=== PATIENT | male | born 1960 | race Caucasian/White ===

== ENCOUNTER → 2019-01-12 08:49 | Outpatient (CLI) | payer OTHER, SELFPAY ==
--- NOTE | 2019-01-12 | DI.RAD.S_ITS ---
PROCEDURE: XR LUMBAR SPINE 2-3V INDICATIONS: LOWER BACK AND LEFT LEG PAIN TECHNIQUE: 3 views of the lumbar spine were acquired. COMPARISON: None. FINDINGS: Bones: 5 [id number] vertebrae are present. There is normal bony alignment. No vertebral body compression fractures. No suspicious bony lesions. Note is made of quite severe degenerative disc disease at L5-S1 where essentially [id number] articulation between the adjacent endplates is present. Note is also made of moderately severe to severe facet osteoarthritis at this level with likelihood of a high-grade spinal and foraminal stenosis as result at that site. Soft tissues: Overlying bowel gas pattern is normal. No suspicious soft tissue calcifications. IMPRESSION: Only a minimal degree of degenerative disc disease and facet osteoarthritis is seen to the L5-S1 level where severe disc disease and facet osteoarthritis can be found, without associated subluxation. Dictated by: Quinn Coreas M.D. on 01/12/2019 at 9:33 Approved by: Quinn Coreas M.D. on 01/12/2019 at 9:35
== END ==
PROVIDERS: Visit Provider Chiropractor
DX: M54.5 Low back pain (principal); M79.605 Pain in left leg
CPT/HCPCS: 72100

== ENCOUNTER → 2021-01-09 09:25 | Outpatient (CLI) | payer OTHER, SELFPAY ==
--- NOTE | 2021-01-09 09:27 | DI.RAD.S_ITS ---
PROCEDURE: XR HIP W PEL IF DONE LT 2V INDICATIONS: chronic left hip pain TECHNIQUE: 2 views of the hip were acquired. COMPARISON: None. FINDINGS: Bones: No fractures or dislocations. No suspicious bony lesions. The visualized pelvic ring appears intact. There is severe narrowing of the right and left hip joint with bone on bone contact, subchondral sclerosis and cystic change. Periarticular osteophyte formation is present. Soft tissues: No suspicious soft tissue calcifications or masses. IMPRESSION: Severe bilateral hip joint degeneration, left greater than right. Dictated by: Lawrence Mullen [facility] Interpreted: Delilah Regan MD on 01/09/2021 at 9:58 Transcribed by: JESSICA on 01/09/2021 at 9:59 Approved by: Delilah Regan M.D. on 01/09/2021 at 15:02
== END ==
PROVIDERS: PCP Internal Medicine; Referring Provider Internal Medicine; Visit Provider Internal Medicine
DX: M25.552 Pain in left hip (principal); M16.0 Bilateral primary osteoarthritis of hip
CPT/HCPCS: 73502

== ENCOUNTER → 2024-01-06 12:13 | Outpatient (CLI) | payer OTHER, SELFPAY ==
--- NOTE | 2024-01-06 12:17 | EKG_ITS ---
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
[2024-01-06 14:08] LABS: Add Manual Diff / Slide Review NO; Basophils Absolute Auto 0 /uL (0-100); Basophils Percent Auto 0.4 % (0-2); Eosinophils Absolute Auto 0 /uL (0-450); Eosinophils Percent Auto 0.7 % (2-4); Hematocrit 38.9 % (41-53); Hemoglobin 13.2 g/dL (13.5-17.5); Lymphocytes Absolute Auto 1700 /uL (1100-4500); Lymphocytes Percent Auto 35.4 % (25-40); Mean Corpuscular Hemoglobin 31.7 PG (26-34); Mean Corpuscular Volume 93.1 fL (80-100); Monocytes Absolute Auto 200 /uL (0-900); Monocytes Percent Auto 5.1 % (3-14); Neutrophils Absolute Auto 2900 /uL (1500-7000); Neutrophils Percent Auto 58.4 % (50-75); Platelet Count 277 X10^3/uL (150-400); Red Blood Cell Count 4.18 X10^6/uL (4.5-5.9); Red Cell Distribution Width 12.7 % (11.6-14.8); White Blood Cell Count 4.9 X10^3/uL (4.5-11.0)
[2024-01-06 14:50] LABS: Hemoglobin A1C% w Est Avg Glu 5.5 % (4.0-6.0)
[2024-01-06 14:54] LABS: Albumin 4.3 g/dL (3.5-5.0); BUN Creatinine Ratio 15.1 (6-22); Blood Urea Nitrogen 13 mg/dL (9-20); Carbon Dioxide 26 mmol/L (22-32); Chloride 106 mmol/L (98-107); Estimated Glomerular Filt Rate > 60 mL/min (>60); Glucose 96 mg/dL (80-110); HEMOLYSIS < 15 (0-50); Potassium 4.1 mmol/L (3.4-5.1); Sodium 139 mmol/L (137-145)
[2024-01-06 15:04] LABS: Prealbumin 30.1 mg/dL (17.6-36.0)
[2024-01-06 15:19] LABS: Vitamin D 25 Hydroxy (D3) 26.3 ng/mL (30.0-100.0)
== END ==
LOC: LAB 12:15
PROVIDERS: Family Provider Internal Medicine; PCP Internal Medicine; Referring Provider Orthopaedic Surgery Adult Reconstructive Orthopaedic Surgery; Visit Provider Orthopaedic Surgery Adult Reconstructive Orthopaedic Surgery
DX: Z01.818 Encounter for other preprocedural examination (principal); R77.0 Abnormality of albumin; E55.9 Vitamin D deficiency, unspecified; R73.9 Hyperglycemia, unspecified; Z01.812 Encounter for preprocedural laboratory examination
CPT/HCPCS: 36415; 80048; 82040; 82306; 83036; 84134; 85025; 93005

== ENCOUNTER → 2024-04-30 16:20 | Outpatient (CLI) | payer BC, SELFPAY ==
[2024-04-30 18:05] LABS: Add Manual Diff / Slide Review NO; Basophils Absolute Auto 0 /uL (0-100); Basophils Percent Auto 0.5 % (0-2); Eosinophils Absolute Auto 100 /uL (0-450); Eosinophils Percent Auto 1.4 % (2-4); Hematocrit 41.8 % (41-53); Lymphocytes Absolute Auto 2400 /uL (1100-4500); Lymphocytes Percent Auto 33.3 % (25-40); Mean Corpuscular HGB Conc 33.6 % (30-36); Mean Corpuscular Hemoglobin 31.2 PG (26-34); Mean Corpuscular Volume 92.9 fL (80-100); Monocytes Absolute Auto 400 /uL (0-900); Monocytes Percent Auto 5.4 % (3-14); Neutrophils Absolute Auto 4300 /uL (1500-7000); Neutrophils Percent Auto 59.4 % (50-75); Platelet Count 297 X10^3/uL (150-400); Red Cell Distribution Width 13.3 % (11.6-14.8); White Blood Cell Count 7.2 X10^3/uL (4.5-11.0)
[2024-04-30 18:11] LABS: Albumin 4.6 g/dL (3.5-5.0); BUN Creatinine Ratio 17.5 (6-22); Blood Urea Nitrogen 17 mg/dL (9-20); Calcium 9.5 mg/dL (8.4-10.2); Carbon Dioxide 25 mmol/L (22-32); Chloride 104 mmol/L (98-107); Estimated Glomerular Filt Rate > 60 mL/min (>60); Glucose 76 mg/dL (80-110); HEMOLYSIS < 15 (0-50); Potassium 4.2 mmol/L (3.4-5.1); Sodium 139 mmol/L (137-145)
[2024-04-30 18:21] LABS: Prealbumin 32.2 mg/dL (17.6-36.0)
[2024-04-30 18:26] LABS: Hemoglobin A1C% w Est Avg Glu 5.5 % (4.0-6.0)
[2024-04-30 18:30] LABS: Vitamin D 25 Hydroxy (D3) 33.4 ng/mL (30.0-100.0)
== END ==
PROVIDERS: Family Provider Internal Medicine; PCP Internal Medicine; Referring Provider Orthopaedic Surgery Adult Reconstructive Orthopaedic Surgery; Visit Provider Orthopaedic Surgery Adult Reconstructive Orthopaedic Surgery
DX: Z01.812 Encounter for preprocedural laboratory examination (principal); R77.0 Abnormality of albumin; E55.9 Vitamin D deficiency, unspecified; R73.9 Hyperglycemia, unspecified
CPT/HCPCS: 36415; 80048; 82040; 82306; 83036; 84134; 85025

== ENCOUNTER 2024-06-26 06:08 | Day surgery (SDC) | payer BC, SELFPAY ==
[2024-06-15 08:32] VITALS: BMI 25.7
[2024-06-26] VITALS (12 sets, daily range): BP systolic 105–154; BP diastolic 62–86; PULSE 72–120; RESP 12–20; TEMP 36.3–36.7; O2SAT 92–100; BMI 25.7
--- NOTE | 2024-06-26 | DI.RAD.S_ITS ---
PROCEDURE: XR HIP W PEL IF DONE LT 2V INDICATIONS: INTRA OP ANTERIOR RIGHT HIP TECHNIQUE: 2 view(s) of the hip acquired. COMPARISON: [facility], [place], XR HIP W PEL IF DONE LT 2V, 01/09/2021, 9:25. [facility] [place], [place], XR PELVIS WITH LATERAL HIP LEFT, 12/26/2023, 16:45. FINDINGS: Intraoperative partially visualized left hip arthroplasty. Hardware is intact. There is good anatomic alignment. IMPRESSION: Intraoperative hip arthroplasty. Dictated by: Delilah Regan M.D. on 06/26/2024 at 13:02 Approved by: Delilah Regan M.D. on 06/26/2024 at 13:03
--- NOTE | 2024-06-26 06:00 | DI.RAD.S_ITS ---
PROCEDURE: XR HIP W PEL IF DONE LT 2V INDICATIONS: ZAHRA TECHNIQUE: 2 view(s) of the hip acquired. COMPARISON: [facility], [place], XR HIP W PEL IF DONE LT 2V, 06/26/2024, 9:32. [facility], [place], XR HIP W PEL IF DONE LT 2V, 01/09/2021, 9:25. FINDINGS: Bones: Patient is status post left hip arthroplasty, with hardware components in expected positions. The hip joint appears congruent. The visualized bony structures appear intact. Soft tissues: Overlying postoperative changes are noted. No suspicious soft tissue densities. IMPRESSION: Expected post-operative appearance of a hip arthroplasty. Dictated by: Federico De La Cruz M.D. on 06/26/2024 at 12:18 Approved by: Federico De La Cruz M.D. on 06/26/2024 at 12:18
[2024-06-26] MEDS: LACTATED RINGERS 1,000 ML 42 ML IV ×2 (07:12→09:50)
[2024-06-26] MEDS: MELOXICAM 7.5 MG TABLET PO (07:19)
[2024-06-26] MEDS: ACETAMINOPHEN 325 MG TABLET 975 MG PO (07:19)
--- NOTE | 2024-06-26 07:48 | PM.PREOP ---
Pre-operative Note Interval Note History & Physical reviewed/Exam performed by Physician: Yes Changes to H&P: No
[2024-06-26] MEDS: CEFAZOLIN 2 GM/100 ML PREMIX 100 ML IV ×2 (07:59→16:44)
[2024-06-26] MEDS: TRANEXAMIC ACID 1,000 MG VIAL 1000 MG INJ ×2 (07:59→09:40)
--- NOTE | 2024-06-26 08:33 | SUR.OPER ---
Supine on padded [place] table with bilateral legs secured in padded positioning boots and suspended in positioning spars, operative leg in traction per surgeon. Head on one pillow. Arms secured on padded armboards <90 degrees abduction. Padded perineal post in place per surgeon.
[2024-06-26] MEDS: ROPIVACAINE/EPI/CLONIDINE/KET 50 ML SYRINGE INJ (09:00)
[2024-06-26] MEDS: ALBUMIN HUMAN 12.5 GM/250 ML VIAL IV (09:39)
--- NOTE | 2024-06-26 09:57 | P.OP_ITS ---
Operative Date/Time/Diagnoses Date of procedure: 06/26/24 Pre-op diagnosis: Left hip osteoarthritis Post-op diagnosis: same Procedure & Clinicians Procedure: Left total hip arthroplasty Same procedure as scheduled: Yes Surgeon: Luis Burton Cover Mat Machine Operator: Peyton Irizarry Anesthesia Type: General and Local Operative Notes Estimated Blood Loss (mL): 450 Procedure in detail: Left Uncemented Direct Anterior Depuy Total Hip Arthroplasty: Implants: * [place] Gription size 62 cup?with +4 liner * Actis femoral stem size 11 high offset? * 36 mm +1.5 ceramic femoral head? Procedure Summary: This 64-year-old male patient had severe osteoarthritis with abundant osteophyte formation around both the acetabular and femoral portions of his hip articulation. Extraction of his femoral head after the neck cut required extensive debridement of these peripheral neck osteophytes. Two screws were placed to provide reinforcement to the cup although it had a robust pinch fit because significant work was required to remove osteophytes from the periphery of the acetabulum as well, particularly inferior medially. He had implants placed which were higher than the templated sizes on both the acetabular and femoral sides. He had been 1.3 cm short preoperatively due to the severity of his arthritis and because of the increased length provided by the construct utilized today reduction was quite challenging. The hip was predictably tight and a conjoined tendon release was required to access the femur for broaching. He was able to externally rotate to 100? at the conclusion of the procedure and I was unable to manually dislocate his hip with maximum external rotation or a 45 degree drop test. Procedure in Detail: This patient was seen preoperatively and evaluated for hip pain which was refractory to numerous nonoperative treatment modalities. Their hip pain correlated with radiographic changes demonstrating significant degeneration in the hip joint. The risks and benefits of continued nonoperative management versus operative management were discussed at length and all of the patient?s questions were answered. Additional educational materials providing further details beyond our discussion in clinic were provided via a publicly available patient education video which included the incidence of medical complications associated with total hip arthroplasty, reasons for revision following total hip arthroplasty, and patient satisfaction rates following total hip arthroplasty. That video can be accessed at [email or web address] . With this understanding of the risks inherent to the procedure, the patient elected to move forward with operative management. Following preoperative optimization, the patient was scheduled for surgery. The patient was met in the preoperative holding area the day of the procedure and all questions were answered. The patient?s nares were swabbed with betadine in order to decolonize them from MRSA. Informed consent was signed and the left limb was marked with indelible ink.? The patient was brought back to the operating room where anesthesia was induced. The patient was transferred to the [place] table and all bony prominences were padded. The operative site was prepped and draped in the usual sterile fashion. Prior to incision, tranexamic acid and cefazolin were administered. Operative templating images were displayed demonstrating the anticipated implant sizes and correct operative extremity. A timeout procedure was performed verifying the patient?s identity, medical comorbidities, allergies, relevant medications, anesthesia type and the surgical plan. All present were in agreement. The assistance of a physician pharmacist assistant was required for positioning, room setup, soft tissue retraction and wound closure. Without this assistance, the procedure would have been significantly more challenging and time consuming.?? A direct anterior approach to the hip was utilized. This was performed with a longitudinal incision through a Heuter interval. The incision was planned 2 cm distal and 2 cm lateral to the ASIS extending towards the lateral patella, in line with the muscle body of the TFL. Following incision, the subcutaneous tissue was dissected while taking care to avoid injury to the lateral femoral cutaneous nerve. The fascia overlying the TFL was identified by dissecting off the overlying fat and identifying perforating vessels to the TFL. The TFL fascia was incised and dissected away from the medial border of the TFL. A cobra retractor was placed over the superior femoral neck between the abductors and the hip capsule and used to reflect the TFL laterally. A [place] self-retainer was then placed in the distal aspect of the wound between the TFL and the rectus femoris. This was tensioned to open up the direct anterior interval and the lateral circumflex vessels were identified and coagulated using electrocautery. The floor of the TFL fascia was incised, exposing the pericapsular fat overlying the hip capsule. A second cobra retractor was placed on the inferior femoral neck. A double-bent soft tissue retractor was placed on the anterior wall of the acetabulum and used to tension the reflected head of rectus femoris, which was then released in order to limit soft tissue tension. A capsulotomy was made in the midline of the anterior hip capsule in line with the femoral neck ending at the vastus tubercle. The double-bent retractor was removed in order to limit the amount of time that a soft tissue retractor remained on the anterior wall and protect the femoral nerve. Tag stitches were placed in the superior and inferior leaflets of the hip capsule. An [place]annie soft tissue retractor was introduced over the tag stitches and tensioned in the interval between the rectus femoris and the TFL in order to retract and protect those muscles. The cobra retractors were replaced intracapsularly, with one over the superior neck in the pocket created by the base of the greater trochanter and the other on the femoral head. The capsulotomy was extended laterally to the base of the greater trochanter and medially to the lesser trochanter. This required externally rotating the hip. Once the lesser trochanter had been identified, a neck cut was planned according to measurements from preoperative templating. A ruler was cut at the length measured between the superior aspect of the lesser trochanter and the collar of the prosthesis. This line was extended towards the inferior aspect of the lateral cobra retractor to plan a cut which would leave minimal residual femoral neck laterally. The neck was cut at 60 degrees of external rotation along that line. A second cut was performed to remove a large napkin ring and facilitate head extraction. The napkin ring cut and femoral head were removed.?? A broad anterior wall retractor was placed between the labrum and the anterior capsule so that the anterior capsule would prevent capturing and pinching the femoral nerve anteriorly. An additional retractor was placed on the posterior wall. External rotation and traction were applied through the [place] table so that the cut surface of the femoral neck would not restrict access to the acetabulum. The labrum was excised sharply and the pulvinar was excised with electrocautery to limit bleeding from branches of the obturator artery. Acetabular reamers were selected based on preoperative templating and measurements of the excised femoral head. These were introduced into the acetabulum. Fluoroscopy was u tilized to replicate a standing AP pelvis radiograph by centering over the pelvis, rotating until there was appropriate symmetry between the obturator foramen, and introducing caudal tilt to match the position of the pubic symphysis relative to the sacrococcygeal junction according to the patient?s anatomy. Fluoroscopy was utilized to ensure appropriate reaming depth. Once satisfied with the reaming depth corresponding to the preoperative template and the pinch fit between the columns, an appropriate sized acetabular cup was selected which would provide 1 mm of press-fit. This cup was introduced and manipulated until appropriate abduction and anteversion angles were obtained with careful attention to appropriate abduction and anteversion angles as evaluated by the position of the cup relative to the anterior and posterior mercado of the acetabulum and the AP fluoroscopy which recreated the patient?s standing radiograph. The cup was impacted into place. Two screws were placed to provide additional fixation. Peripheral osteophytes were removed. The acetabular liner was then placed with care to ensure locking of the locking mechanism.? Attention was then turned to the femur. All retractors were removed, traction was released, a retractor was placed in the interval between the hip capsule and the gluteus minimus, and the hip was externally rotated to 90 degrees. Traction was applied through the [place] table to tension the lateral capsule and this was released using electrocautery. Traction was released and a [place] hook was placed posteriorly around the proximal femur at the level of the vastus ridge. The table height was lowered in order to restrict the tension on the anterior structures during hip hyperextension to limit the risk of femoral nerve palsy. With traction off and the hip at 90 degrees of external rotation, the hip was hyperextended and adducted while manually elevating the femur away from the acetabulum with the [place] hook to ensure it would not be caught behind the greater trochanter. An asymmetric retractor was placed over the calcar and a broad double-pronged retractor was placed over the greater trochanter. The tag stitch capturing the lateral leaflet of the capsule was moved to the medial side, leaving the conjoined and piriformis tendons isolated in the face of the greater trochanter. The hip was externally rotated and elevated. A release of the conjoined tendon was necessary in order to obtain adequate exposure for broaching. The canal was opened with an opening broach and a rasp was used to remove cancellous bone. A rongeur was used to remove the residual lateral bone at the base of the greater trochanter to avoid placing the stem in varus. The femur was then broached to the appropriate sized stem yielding good rotational fit and fill of the canal as well as appropriate version of the stem trial. Neck and head trials were placed, all retractors were removed and the hip was returned to neutral abduction and extension. I then reduced the hip. Initial trialing was performed with a size 11 broach, a high offset neck and a +1.5 head. I initially manually externally rotated the hip and found no instability with maximum external rotation. I then locked the hip in 45 degrees of external rotation and dropped it to the floor with traction off which demonstrated no instability. An AP pelvis fluoroscopic image matching the preoperative standing radiograph with both lesser trochanters visible and both hips in 40 degrees of external rotation demonstrated appropriate leg length and offset. AP and lateral hip fluoroscopic images were obtained to evaluate the broach size which demonstrated good canal fill. The hip was dislocated and I returned to the broaching position. Based on my evaluation during initial trialing I planned to place these definitive implants. The definitive stem was placed and the trunnion was cleaned and dried. I placed a ceramic head onto the trunnion and impacted it into place on the [place] taper.?? All retractors were removed and the hip was reduced. A dilute mixture of betadine and peroxide was used to bathe the soft tissues during final fluoroscopic assessment. Appropriate component positioning was confirmed on an AP pelvis radiograph with the operative and nonoperative legs in 40 degrees of external rotation, evaluating leg length and offset. Appropriate stem fill was evaluated on AP and lateral hip radiographs. No fractures were identified on these radiographs. There was no hip instability with maximum (100?) external rotation as well as a 45 degree drop test. The hip was copiously irrigated with pulse lavage. The capsule was closed with absorbable interrupted suture. The TFL fascia was closed with barbed suture while carefully protecting the lateral femoral cutaneous nerve from entrapment. A mixture of Ropivacaine, Epinephrine, Clonidine and Toradol was infiltrated throughout the soft tissues. The skin was closed with 2-0 and 3-0 sutures. Surgical glue was applied and a soft dressing was placed.??The sponge, instrument and needle counts were reported as being correct at the end of the case.??No obvious complications occurred. The patient was transferred from the [place] table back to a stretcher. The patient emerged from anesthesia without difficulty and was taken to the PACU in a stable condition.? Plan for aftercare: * Anterior hip precautions * Weightbearing as tolerated * Aspirin 81 twice per day for DVT prophylaxis * Anticipate discharge home either today or tomorrow. Patient will be transferred to the floor postoperatively * Change into normal clothes upon arrival on the hospital floor * Mobilize in the halls as much as is logistically possible. If physical therapy is unavailable for mobilization, then patient should mobilize with nursing staff * Multimodal pain regimen with no IV opioids ordered * Apply ice machine to operative hip. Ensure that sufficient ice is in the chamber for the pad to remain cold * Follow up at [facility] in 2 weeks * Detailed postoperative instructions available at [email or web address]
[2024-06-26] MEDS: OXYCODONE IR 5 MG TABLET PO (10:40)
[2024-06-26] MEDS: ACETAMINOPHEN 325 MG TABLET 650 MG PO ×3 (11:21→22:44)
[2024-06-26] MEDS: LACTATED RINGERS 1,000 ML 100 ML IV ×2 (11:21→20:40)
[2024-06-26 11:34] LABS: Hematocrit 34.9 % (41-53); Hemoglobin 11.9 g/dL (13.5-17.5)
--- NOTE | 2024-06-26 15:50 | PT.IIE ---
Current Diagnoses Unilateral primary osteoarthritis, left hip (06/26/24) Surgery Performed Operation Date: 06/26/24 07:45 Actual Procedures p Total Hip Arthroplasty/Anterior Approach(Left) - Luis Burton MD Surgical History (Last Reviewed 06/26/24 @ 07:23 by Barbra Landry, LOLA) Anesthesia H/O hemorrhoidectomy (~2001) Medical History (Last Updated 06/15/24 @ 09:07 by Jennyfer Smallwood RN) Anxiety about health Chronic back pain Gout Hemorrhoid Osteoarthritis of left hip Osteoarthritis of right hip Physical Therapy Inpatient Evaluation/Re-Eval M1 PT/OT-IP Prior Functional Status Start: 06/26/24 16:57 Freq: NEEDED Status: Active Protocol: Document 06/26/24 15:50 AB (Rec: 06/26/24 17:23 AB [id number]) Medical Review Prior Functional Status Medical History Reviewed Yes Communication able to make needs known Mobility and Gait pt stated that he was independent with all mobilities and ambulation without AD Social History Household Members children Living Arrangements House Number of Floors (Floors) One Floor Number of Stairs To Enter/Railing? 3 steps B rails to enter Home Environment Standard Height Toilet,Walk in Shower Home Equipment Front Wheel Walker,Straight Cane,Raised Toilet Seat w/ Armrests,Shower Seat without Backrest,Grab Bars Near Toilet Additional Social History Comment pt lives with his son who can assist him but works 4am to 10 am. pt will have his neighbor and nephew assist him if needed when son is away M2 PT-IP Current Condition Start: 06/26/24 16:57 Freq: NEEDED Status: Active Protocol: Document 06/26/24 15:50 AB (Rec: 06/26/24 17:23 AB [id number]) Physical Therapy Current Condition Current Condition Evaluation Date 06/26/24 Treatment Diagnosis s/p L ZAHRA anterior; difficulty in walking Onset Date 06/26/24 M3 PT-IP Subjective Start: 06/26/24 16:57 Freq: NEEDED Status: Active Protocol: Document 06/26/24 15:50 AB (Rec: 06/26/24 17:23 AB [id number]) Subjective Physical Therapy Visit Type Type Initial Evaluation Visit Start Time 15:50 Visit Stop Time 16:35 Number of GERMAN PROFESSOR Visits 0 Physical Therapy Visit Comments Patient Comments agreeable to do PT Therapy Pain Assessment Pain When Pain Assessed At Rest Pain Present Pain Present Pain Reported Location Left Hip Intensity 1 Scale Used Numeric (0 - 10) Pain Management Techniques Apply Cold,Distraction, Modification of Treatment,Re- positioning,Timing of Activity with Medications M4 PT-IP Mobility and Gait Start: 06/26/24 16:57 Freq: NEEDED Status: Active Protocol: Document 06/26/24 15:50 AB (Rec: 06/26/24 17:23 AB [id number]) PT-Bed Mobility Assessment Supine to Sit Supine to Sit Minimal Assistance,Bedrails Sit to Supine Sit to Supine Moderate Assistance,Bedrails PT-Transfer Assessment Sit to and From Stand Sit to and from Stand Contact Guard Assistance,1 Person Assistance,Use of Upper Extremities Equipment Transfer Assistive Device Gait Belt,Front Wheeled Walker Orthotic/Prosthetic Devices or Brace: No Transfers Transfer Destination Toilet Transfer Technique ambulated Transfer Ability Level of Assist Contact Guard Assistance,1 Person Assistance,Use of Upper Extremities Comments Mobility Comments pt in bed and agreeable to do PT. obtained PLOF and home set up. educated pt regarding L hip anterior precautions. post-op folder provided. BP in supine: 117/69. pt completed supine to sit min A and cues. pt used bed rail to assist. pt sat on EOB. BP checked: 112/73 pt sat for a few more seconds and BP rechecked: 134/76. pt requested to use the toilet. pt completed sit to stand CGA and ambulated to the toilet using FWW CGA. no c/o dizziness. pt was able to use the toilet standing using FWW for support. pt ambulated towards the bed using FWW CGA and c/o having cold sweats and lightheaded. pt sat on EOB. attempted to check BP in sitting but unable. assisted pt to lie down in bed mod A for bed mobility. BP checked: 88/47. nurse in room BP after repositioning pt in bed: 102/57. call light and table placed within reach. Gait Assessment Gait Gait Assistance Required: Contact Guard Assist Distance (Feet) 12 Able to Maintain Weight Bearing Status Yes During Gait Assistive Devices Assistive Device Gait Belt,Front Wheeled Walker Orthotic/Prosthetic Devices or Brace: No Gait Deviations General Gait Pattern Antalgic Factors Limiting Gait Function Factors Limiting Gait Function Decreased Activity Tolerance, Decreased Strength,Difficulty Following Directions,Limited Range of Motion,Pain,Poor Balance,Poor Safety Awareness PT-Balance Assessment Sitting Balance and Reactions Static Sitting Balance Ability Good Dynamic Sitting Balance Ability Good Standing Balance and Reactions Static Standing Balance Ability Fair Dynamic Standing Balance Ability Fair Device Used FWW M5 PT-IP Objective Assessments Start: 06/26/24 16:57 Freq: NEEDED Status: Active Protocol: Document 06/26/24 15:50 AB (Rec: 06/26/24 17:23 AB [id number]) Orientation Orientation/Cognition Level of Alertness Alert Orientation Name,Place,Situation Language Function Ability Hard of Hearing Safety Awareness Decreased Safety Awareness Memory Description No Deficits Noted Gross Range of Motion Lower Extremity ROM Assessment Within Functional Limits Strength Lower Extremity Strength Assessment Left Impaired Hip 3-/5 Knee 4-/5 Sensation Assessment Sensation Gross Sensation WNL Muscle Tone Muscle Tone WNL Yes M6 PT-IP Treatment Start: 06/26/24 16:57 Freq: NEEDED Status: Active Protocol: Document 06/26/24 15:50 AB (Rec: 06/26/24 17:23 AB [id number]) Physical Therapy Treatment Education Education Provided Precautions,Weight Bearing Status,Post-Op Packet,Safety M7 PT-IP Assessment and Plan Start: 06/26/24 16:57 Freq: NEEDED Status: Active Protocol: Document 06/26/24 15:50 AB (Rec: 06/26/24 17:23 AB [id number]) PT Summary Assessment and Plan Potential Rehabilitation Potential Fair Status of Condition at Evaluation Unstable Summary Impairments Pain,ROM,Strength,Balance, Coordination,Sensation,Tone, Cognition,Bed Mobility, Transfers,Gait,Activity Tolerance Assessment Summary pt is a 64 y/o M s/p L ZAHRA anterior approach POD 0. pt with L hip anterior precautions and is WBAT. pt requiring min to mod A for bed mobility, CGA for transfers and ambulation using FWW. pt has orthostatic hypotension limiting activity. will continue to assess progress. when appropriate, will conduct caregiver training and stair climbing training. Goals Bed Mobility Goal Independent Transfer Goal Independent,Front Wheeled Walker Gait Goal Independent,Front Wheel Walker Gait Distance 200 Other Goals up/down 3 steps B rails SBA Days to Meet Goals 5 Frequency of Treatment Frequency Of Treatment Twice a Day Treatment Plan Physical Therapy Treatment Plan Bed Mobility Training,Transfer Training,Gait Training, Therapeutic Exercise,Balance Retraining,Post Op Education, Discharge Planning,Hot or Cold Pack,Neuromuscular Re-ed, Coordination Retraining,Manual Therapy Precautions Anterior Hip Precautions No Hip Extension,No Hip External Rotation Weight Bearing Status Weight Bearing Status Weight Bear as Tolerated Allowed Weight Bearing Amount (enter % LLE WBAT or #) (%) Recommendations To Nursing Amount of Assist Needed 1 Person Assist Discharge Recommendations PT Discharge Recommendations Home with Assistance, Outpatient PT Transportation Needs at Discharge Private Vehicle
[2024-06-26] MEDS: IBUPROFEN 600 MG TABLET PO (20:38)
[2024-06-26] MEDS: ASPIRIN EC 81 MG TABLET PO (20:38)
[2024-06-26] MEDS: DOCUSATE 100 MG CAPSULE PO (20:38)
[2024-06-27] MEDS: CEFAZOLIN 2 GM/100 ML PREMIX 100 ML IV (00:08)
[2024-06-27] MEDS: ACETAMINOPHEN 325 MG TABLET 650 MG PO ×2 (04:59→12:10)
[2024-06-27 05:21] LABS: Hematocrit 29.7 % (41-53); Hemoglobin 10.3 g/dL (13.5-17.5)
--- NOTE | 2024-06-27 07:54 | P.DS_ITS ---
History of Present Illness History of Present Illness Date Patient Seen: 06/27/24 Time Patient Seen: 07:54 Chief complaint: Left ZAHRA Anterior*OPB* Narrative: Operative Date/Time/Diagnoses Date of procedure: 06/26/24 Pre-op diagnosis: Left hip osteoarthritis Post-op diagnosis: same Procedure & Clinicians Procedure: Left total hip arthroplasty Same procedure as scheduled: Yes Surgeon: Luis Burton Instructional Systems Designer: Peyton Irizarry Anesthesia Type: General and Local Operative Notes Estimated Blood Loss (mL): 450 Procedure in detail: Left Uncemented Direct Anterior Depuy Total Hip Arthroplasty: Implants: * Herculaneum Gription size 62 cup?with +4 liner * Actis femoral stem size 11 high offset? * 36 mm +1.5 ceramic femoral head? Discharge Providers Provider Discharge Date: 06/27/24 Primary care physician: Benoit Hall MD Consults: 06/26/24 06:00 Consult to Anesthesiology Routine Comment: Consulting Provider: Anesthesiologist Reason for consultation: Regional block for post operative pain control Has provider been notified: No 06/26/24 10:54 Consult to Discharge Planning Routine Comment: Consult to Physical Therapy Evaluate & Treat Comment: Physician Instructions: post op ZAHRA protocol Discharge provider: Peyton Irizarry PA-C Summary Hospital Course Discharge Diagnosis: Left hip osteoarthritis, s/p left total hip arthroplasty Hospital Course: Mr Cuevas's hospital course was unremarkable. On the morning of POD# 1, he was feeling well and wanted to go home. He was eating and voiding without difficulty and his pain was well-controlled with oral medication. He had worked once with PT and still needed to do caregiver and stair training. Exam Vital Signs (past 8 hours): Oxygen Delivery Method Room Air Oxygen Flow Rate 0 Narrative Exam Narrative: 5/5 strength in hip flexors, quadriceps, hamstrings, DF, PF, EHL on left. Sensation to light touch intact throughout LLE, calf soft and compressible. Aquacel dressing CDI. Objective Labs 06/27/24 05:07 Labs: Laboratory Results - last 24 hr 06/26/24 06/27/24 11:29 05:07 Hgb 11.9 L 10.3 L Hct 34.9 L 29.7 L PFSH Medical History (Updated 06/15/24 @ 09:07 by Jennyfer Smallwood RN) Anxiety about health Chronic back pain Osteoarthritis of right hip Osteoarthritis of left hip Hemorrhoid Gout Surgical History (Updated 06/27/24 @ 08:00 by Peyton Irizarry PA-C) Anesthesia H/O hemorrhoidectomy (~2001) Family History (Updated 01/10/21 @ 20:30 by Sanjuana Norman) Father Lung cancer Mother Cancer Social History household members: children Smoking Status: Never smoker alcohol intake: former Discharge Assessment & Plan Assessment and Plan Assessment: Left hip osteoarthritis, s/p left total hip arthroplasty Plan of Treatment: Discharge home after PT. It appears that rxs for ondansetron and oxycodone were sent from our office on 06/19, but pt never picked them up; will resend. F/u in 2 weeks as scheduled. ASA 81 mg BID x 4 weeks for VTE prophylaxis. Discharge Plan Discharge Plan Patient Disposition: Home Discharge orders & Medications Discharge Orders: Discharge (Order); Ordered 06/27/24 Ordered By: Peyton Irizarry Prescriptions: New oxycodone 5 mg tablet 5 mg PO Q4-6H PRN (Reason: pain (scale score 4-6)) Qty: 20 0RF ondansetron 4 mg tablet,disintegrating 4 mg PO Q6H PRN (Reason: nausea and vomiting) Qty: 20 0RF Continued acetaminophen 500 mg Tablet 500 mg PO DAILY Follow up/Referrals: Benoit Hall MD [Primary Care Provider] - Luis Burton MD [Physician] - 07/08/24 2:00 pm ([facility] in [place]) Diet/Activity/Treatments Diet: Diet as Tolerated Activity: Weightbearing as tolerated. Anterior hip precautions. Cold/Heat Therapy: Ice to hip as needed for pain. Skin/Wound/Dressing Care Report to your healthcare provider any signs of infection, such as:: chills, fever, night sweats, unusual drainage and unusual redness Dressing: May shower. Leave Aquacel dressing in place until follow up in office. No bathing or otherwise soaking incision. Call the office if the dressing becomes saturated inside. Visit Report/Discharge Packet Instructions: DI for Hip Replacement, DI for Prescription Opioid Use Stand Alone Forms: Patient Portal/API, Surgery Discharge Discharge Data Primary Care Provider: Benoit Hall Attending Provider: Luis Burton
[2024-06-27 08:00] VITALS: BP 105/68; PULSE 77; RESP 16; TEMP 36.7; O2SAT 99
--- NOTE | 2024-06-27 08:45 | PT.IPTN ---
Current Diagnoses Unilateral primary osteoarthritis, left hip (06/26/24) Presence of unspecified artificial hip joint (06/26/24) Surgery Performed Operation Date: 06/26/24 07:45 Actual Procedures p Total Hip Arthroplasty/Anterior Approach(Left) - Luis Burton MD Physical Therapy Treatment Note M2 PT-IP Current Condition Start: 06/26/24 16:57 Freq: NEEDED Status: Active Protocol: Document 06/26/24 15:50 AB (Rec: 06/26/24 17:23 AB [id number]) Physical Therapy Current Condition Current Condition Evaluation Date 06/26/24 Treatment Diagnosis s/p L ZAHRA anterior; difficulty in walking Onset Date 06/26/24 M3 PT-IP Subjective Start: 06/26/24 16:57 Freq: NEEDED Status: Active Protocol: Document 06/27/24 08:45 AB (Rec: 06/27/24 12:09 AB [id number]) Subjective Physical Therapy Visit Type Type Treatment Note Visit Start Time 08:45 Visit Stop Time 09:25 Number of HOME RESTORATION SERVICE SUPERVISOR Visits 0 Physical Therapy Visit Comments Patient Comments agreeable to do PT Therapy Pain Assessment Pain When Pain Assessed At Rest Pain Present Pain Present Pain Reported Location Left Hip Intensity 2 Scale Used Numeric (0 - 10) Pain Behaviors Guarding Pain Management Techniques Apply Cold,Distraction, Modification of Treatment,Re- positioning,Timing of Activity with Medications M4 PT-IP Mobility and Gait Start: 06/26/24 16:57 Freq: NEEDED Status: Active Protocol: Document 06/27/24 08:45 AB (Rec: 06/27/24 12:09 AB [id number]) PT-Bed Mobility Assessment Supine to Sit Supine to Sit Standby Assistance PT-Transfer Assessment Sit to and From Stand Sit to and from Stand Standby Assistance,1 Person Assistance,Use of Upper Extremities Equipment Transfer Assistive Device Gait Belt,Front Wheeled Walker Orthotic/Prosthetic Devices or Brace: No Transfers Transfer Destination Bed Transfer Technique ambulated Transfer Ability Level of Assist Standby Assistance,Use of Upper Extremities Comments Mobility Comments pt supine in bed and agreeable to do PT. BP: 99/60. reviewed hip precautions and pt able to recall. completed supine to sit SBA. required increase time to complete. pt with increase retrolean and cued to correct. per pt, he has chronic back issues and had to sit up right. educated pt importance of posture and alignment. pt understood. BP in sitting 107/65. pt without c/o dizziness/lightheadedness . BP checked after ~ 2 min: 116/70. pt completed sit to stand SBA and ambulated in room using FWW SBA ~ 30 ft. pt sat on chair. BP checked: 117/64. pt agreed to do stairs . sit to stand from chair SBA and ambulated in the hallway using FWW ~ 100 ft SBA. stair climbing training: educated pt on how to do stairs. pt completed up/down steps using B rails SBA. assisted pt back to his room. ambulated from w/c to chair using FWW SBA. positioned pt on the chair. ice pack provided. call light and table placed within reach. pt without further concerns. BP at end of session: 114/54. Gait Assessment Gait Gait Assistance Required: Standby Assistance Distance (Feet) 100 Able to Maintain Weight Bearing Status Yes During Gait Assistive Devices Assistive Device Gait Belt,Front Wheeled Walker Orthotic/Prosthetic Devices or Brace: No Gait Deviations General Gait Pattern Antalgic Factors Limiting Gait Function Factors Limiting Gait Function Decreased Activity Tolerance, Decreased Strength,Limited Range of Motion,Pain,Poor Balance,Poor Safety Awareness Stair Climbing Assessment Evaluation Level of Assist On Stairs Standby Assistance Devices Stair Climbing Assistive Devices Left Railing,Right Railing Technique/Endurance Stair Climbing Direction Ascend and Descend Stair Climbing Technique Step to Step Number of Steps Climbed 3 Stair Climbing Set # Repetitions (reps) 1 M5 PT-IP Objective Assessments Start: 06/26/24 16:57 Freq: NEEDED Status: Active Protocol: Document 06/26/24 15:50 AB (Rec: 06/26/24 17:23 AB [id number]) Orientation Orientation/Cognition Level of Alertness Alert Orientation Name,Place,Situation Language Function Ability Hard of Hearing Safety Awareness Decreased Safety Awareness Memory Description No Deficits Noted Gross Range of Motion Lower Extremity ROM Assessment Within Functional Limits Strength Lower Extremity Strength Assessment Left Impaired Hip 3-/5 Knee 4-/5 Sensation Assessment Sensation Gross Sensation WNL Muscle Tone Muscle Tone WNL Yes M6 PT-IP Treatment Start: 06/26/24 16:57 Freq: NEEDED Status: Active Protocol: Document 06/27/24 08:45 AB (Rec: 06/27/24 12:09 AB [id number]) Physical Therapy Treatment Education Education Provided Precautions,Safety M7 PT-IP Assessment and Plan Start: 06/26/24 16:57 Freq: NEEDED Status: Active Protocol: Document 06/27/24 08:45 AB (Rec: 06/27/24 12:09 AB [id number]) PT Summary Assessment and Plan Potential Rehabilitation Potential Good Summary Impairments Pain,ROM,Strength,Balance,Bed Mobility,Transfers,Gait, Activity Tolerance Progress Towards Goals Progressing Toward Goals Assessment Summary pt progressing well with mobility and able to ambulate using fWW ~ 100 ft SBA. pt plans to go home and will have his son to assist him if needed. pt may go home when medically stable. Goals Bed Mobility Goal Independent Transfer Goal Independent,Front Wheeled Walker Gait Goal Independent,Front Wheel Walker Gait Distance 200 Other Goals up/down 3 steps B rails SBA Days to Meet Goals 5 Frequency of Treatment Frequency Of Treatment Twice a Day Treatment Plan Physical Therapy Treatment Plan Bed Mobility Training,Transfer Training,Gait Training, Therapeutic Exercise,Balance Retraining,Post Op Education, Discharge Planning,Hot or Cold Pack,Neuromuscular Re-ed, Coordination Retraining,Manual Therapy Precautions Anterior Hip Precautions No Hip Extension,No Hip External Rotation Weight Bearing Status Weight Bearing Status Weight Bear as Tolerated Allowed Weight Bearing Amount (enter % LLE WBAT or #) (%) Recommendations To Nursing Amount of Assist Needed 1 Person Assist Discharge Recommendations PT Discharge Recommendations Home with Assistance, Outpatient PT Transportation Needs at Discharge Private Vehicle
[2024-06-27] MEDS: ASPIRIN EC 81 MG TABLET PO (09:09)
[2024-06-27] MEDS: DOCUSATE 100 MG CAPSULE PO (09:09)
--- NOTE | 2024-06-27 12:18 | PC.NURSE ---
Addendum entered by Flo Byrd R.N. 06/27/24 18:08: discharge instructions given to Pt and his sister in law. Pt escorted to private car. jeancarlos activity well. IV d/c'd intact per protocol prior to escort down to car. Original Note: Pt alert and oriented, offers no overt complaint, doing well with post op recovery, asking appropriate questions. Follows commands well. Readying for d/c.
--- NOTE | 2024-06-27 15:39 | CM.DANOTE ---
Patient is a 64 yo male who was [place] [facility] [place] for LTHA. Pt has [employer] for insurance and his PCP is Dr. Benoit Hall. EMR was reviewed. Per Ortho PA, pt tolerated procedure well and pain seems controlled, voiding independently, and tolerating diet and medically stable to discharge home today and no identified barriers to discharge. Per PT, pt able to ambulate with FWW CGA/SBA and completed stairs and recommending home with assist and outpt PT. Pt lives in [place] with his son and is active and independent at baseline and son can provide assist most of the time but works [id number] so pt's nephew can assist as needed during those times. Plan: Patient to d/c home today via family POV and outpt f/u and no further SW needs at this time. STELLA Higuera Discharge Planning/Care Management Pre-Anesthesia Assessment Start: 06/15/24 08:32 Freq: Status: Complete Protocol: Document 06/15/24 08:32 CAB (Rec: 06/15/24 09:21 CAB [id number]) Pre-Anesthesia Assessment PAC Comment Phone assess 06/15/24 Patient Information Reviewed Via Phone Assessment Assessment Completed With Patient Diagnostic Results BMP/CMP,CBC,EKG Comment Labs/EKG @ [facility] Primary Care Provider Benoit Hall Comment Clearance form 12/26/23 scanned and in surgery folder Seen Specialist in Last 12 Months Yes Specialist Seen Orthopedist Primary Language Lao Front End Ui Developer Required No Height 187.96 cm Weight 90.718 kg Body Mass Index (BMI) 25.7 Hearing Ability Normal Visual Impairment No Limitations Visual Assist None Dentition Type Teeth, Natural Present,Teeth, Broken Barriers to Learning None Hx Anesthesia Reactions No: Pt very anxious about anesthesia Hx Family Anesthesia Reaction No Hx Malignant Hyperthermia No Hx Blood Transfusions No Anesthesia Review Requested No Senior Assistant Manager No alcohol intake former Alcohol Intake Frequency Other: Stopped 2014 Smoking Status Never smoker Substance Use Type [#R] does not use Pain Present Pain Reported Musculoskeletal Symptoms Abnormal Gait,Back Pain, Difficulty Walking,Joint Pain History of Falling (Recent or History of No ) Patient is completely paralyzed or No completely immobile Mental Status Oriented to own ability Is patient on oxygen? No Does patient have MINOR/SOB No Hx Sleep Apnea No Currently Taking a Beta Chuck No Can You Climb a Flight of Stairs Without Yes SOB Hx Chest Pain No Hx SOB No Hx Syncope or Dizziness No Anti-Coagulant Therapy No Has a Director Of Strategic Communications No Cardiac Testing No Hx Pacemaker/ICD No Pacemaker Rep Required? No Cardiac Clearance Received No Diet Type At Home Regular Dysphagia No Gastrointestinal Symptoms None Chronic UTI No Urinary Catheter Present No Hx Urinary Self Catheterization No Diabetes No HgbA1C 5.5 Date 04/30/24 Comment A1c 5.5% 04/30/24 Hx Drug Resistant Organism No Presence of External or Internal Medical No Devices Have you had any close contact with No someone diagnosed with COVID-19? Comment No covid symptoms x 8 weeks Marital Status Lives With children Current Living Arrangements Mobile home Number of Floors (Floors) One Floor Number of Stairs To Enter/Railing? 3 steps Support System Child/Children Does the Patient Have Assistance After Yes: Lives with son who will Surgery assist with care at [place] Patient Discharge Plan Description Return Home Comment Pt advised same day surgery per surgeon Feels Safe in Current Environment Yes Been Physically Hurt or Threatened By a No Person in Current Environment Do you have thoughts of harming yourself None or others? Are you currently considering suicide? No Do you have a plan to hurt yourself or No Plan others? Do You Have Any Spiritual Beliefs That No May Affect Your HC Choices? Do You Have Any Cultural Practices That No May Affect Your HC Choices? Comment Latter-Day Who Can We Speak to About Patient's Care Family, friends Identifying Code for Release of Patient Declines to issue Information Health Care Proxy/Next of Kin Haroldo (son) Health Care Proxy Emergency Contact Name Haroldo (son) Emergency Contact Advance Directives? No Power of School Photographer No PAC Instructions Assistance for 24 hours post- op,Durable medical equipment, Medications to take/avoid,No ETOH/petroleum product on skin DOS,NPO,Post-op transportation,Pre-surgical wash,Sturdy shoes/comfortable clothes,Do not bring valuables and remove jewelry
== END 2024-06-27 15:30 | disposition home or self-care (01) ==
LOC: OR 06:08 → AC 06:09
PROVIDERS: Family Provider Internal Medicine; PCP Internal Medicine; Referring Provider Orthopaedic Surgery Adult Reconstructive Orthopaedic Surgery; Visit Provider Orthopaedic Surgery Adult Reconstructive Orthopaedic Surgery
PROC: (CPT 27130; principal; 2024-06-26 07:45)
DX: M16.12 Unilateral primary osteoarthritis, left hip (principal); M25.752 Osteophyte, left hip
CPT/HCPCS: 27130; 36415; 73502; 76000; 85014; 85018; 97116; 97162; 97530; C1776; C1713; J0330; J0690; J1100; J1171; J1885; J2250; J2405; J2704; J3010; P9045

== ENCOUNTER → 2024-10-22 15:26 | Outpatient (CLI) | payer BC, SELFPAY ==
[2024-06-26 13:33] VITALS: BMI 25.7
[2024-10-22 16:03] LABS: Add Manual Diff / Slide Review NO; Basophils Absolute Auto 0 /uL (0-100); Basophils Percent Auto 0.9 % (0-2); Eosinophils Absolute Auto 100 /uL (0-450); Eosinophils Percent Auto 1.6 % (2-4); Hemoglobin 13.7 g/dL (13.5-17.5); Lymphocytes Absolute Auto 1800 /uL (1100-4500); Lymphocytes Percent Auto 41.1 % (25-40); Mean Corpuscular HGB Conc 33.3 % (30-36); Mean Corpuscular Hemoglobin 30.6 PG (26-34); Mean Corpuscular Volume 91.7 fL (80-100); Monocytes Absolute Auto 400 /uL (0-900); Monocytes Percent Auto 7.9 % (3-14); Neutrophils Absolute Auto 2200 /uL (1500-7000); Neutrophils Percent Auto 48.5 % (50-75); Platelet Count 294 X10^3/uL (150-400); Red Blood Cell Count 4.47 X10^6/uL (4.5-5.9); Red Cell Distribution Width 14.2 % (11.6-14.8); White Blood Cell Count 4.5 X10^3/uL (4.5-11.0)
[2024-10-22 16:14] LABS: Hemoglobin A1C% w Est Avg Glu 5.5 % (4.0-6.0)
[2024-10-22 16:16] LABS: Albumin 4.6 g/dL (3.5-5.0); BUN Creatinine Ratio 13.7 (6-22); Blood Urea Nitrogen 14 mg/dL (9-20); Calcium 9.3 mg/dL (8.4-10.2); Carbon Dioxide 27 mmol/L (22-32); Chloride 104 mmol/L (98-107); Estimated Glomerular Filt Rate > 60 mL/min (>60); Glucose 85 mg/dL (70-99); HEMOLYSIS < 15 (0-50); Potassium 4.2 mmol/L (3.4-5.1); Sodium 138 mmol/L (137-145)
[2024-10-22 16:24] LABS: Prealbumin 27.7 mg/dL (17.6-36.0)
[2024-10-22 16:33] LABS: Vitamin D 25 Hydroxy (D3) 34.6 ng/mL (30.0-100.0)
== END ==
PROVIDERS: PCP Internal Medicine; Referring Provider Orthopaedic Surgery Adult Reconstructive Orthopaedic Surgery; Visit Provider Orthopaedic Surgery Adult Reconstructive Orthopaedic Surgery
DX: M16.11 Unilateral primary osteoarthritis, right hip (principal); Z78.9 Other specified health status
CPT/HCPCS: 36415; 80048; 82040; 82306; 83036; 84134; 85025